=== PATIENT | male | born 1955 | race Caucasian/White ===

== ENCOUNTER 2019-01-07 01:13 | Inpatient (IN) | payer SELFPAY ==
[~2019-01-07] VITALS: Ht 165.1 cm; Wt 89.2 kg
[2019-01-07] MEDS ORDERED: ACETAMINOPHEN 325 MG TAB PO STA (01:37)
[2019-01-07] MEDS ORDERED: SODIUM CHLORIDE 0.9% 1L BAG IV* STA (01:39)
--- NOTE | 2019-01-07 01:40 | ERD ---
ER Documentation Chief Complaint Chief Complaint sob/ cough since yesterday, chills, and fever tonight HPI The patient is a 63-year-old male, presenting to the ER because of shortness of breath, cough, nasal congestion, general body pain for the last couple days, worse today. He denies neck pain, chest pain, abdominal pain, vomiting, dysuria, diarrhea. He does not smoke nor drink Medical history: Hypertension Past surgical history: Left knee arthroscopy many years ago ROS All systems reviewed and are negative except as per history of present illness. Medications Home Meds No Active Prescriptions or Reported Meds Allergies Allergies: Coded Allergies: No Known Drug Allergy (Verified Allergy, Unknown, 01/07/19) PMhx/Soc History of Surgery: Yes (KNEE SX) Anesthesia Reaction: No Hx Neurological Disorder: No Hx Respiratory Disorders: No Hx Cardiac Disorders: Yes (HTN) Hx Psychiatric Problems: No Hx Miscellaneous Medical Probl: No Hx Alcohol Use: Yes Hx Substance Use: No Hx Tobacco Use: No Smoking Status: Never smoker Physical Exam Vitals Vital Signs Date Temp Pulse Resp B/P (MAP) Pulse Ox O2 O2 Flow FiO2 Time Delivery Rate 01/07/19 100.2 97 16 118/68 95 Nasal 4.0 02:54 (85) Cannula 01/07/19 85 24 131/75 97 Nasal 4.0 02:15 (93) Cannula 01/07/19 95 3.0 02:15 01/07/19 96 22 95 Nasal 1.0 02:13 Cannula 01/07/19 Nasal 4 01:46 Cannula 01/07/19 102.8 01:45 01/07/19 Nasal 4.0 01:36 Cannula 01/07/19 102.6 108 24 189/74 94 01:16 (112) Physical Exam Const: No acute distress. Head: Atraumatic. Eyes: Normal Conjunctiva. ENT: Normal External Ears, Nose and Mouth. Neck: Full range of motion. No meningismus. Resp: Tachypneic, bilateral expiratory wheezes Cardio: Regular tachycardic Abd: Soft, non distended, normal bowel sounds, non tender. Skin: No petechiae or rashes. Back: No midline or flank tenderness. Ext: No cyanosis, or edema. Neur: Awake and alert. No focal deficit Psych: Normal Mood and Affect. Result Diagram: 3/9/19 0127 3/9/19 0127 Results 24 hrs Laboratory Tests Test 01/07/19 01:26 01/07/19 01:27 01/07/19 02:00 01/07/19 02:15 POC Venous Lactate 1.4 mmol/L White Blood Count 13.6 10^3/ul Red Blood Count 5.17 10^6/ul Hemoglobin 15.1 g/dl Hematocrit 45.1 % Mean Corpuscular 87.2 fl Volume Mean Corpuscular 29.2 pg Hemoglobin Mean Corpuscular 33.5 g/dl Hemoglobin Concent Red Cell 13.2 % Distribution Width Platelet Count 163 10^3/UL Mean Platelet 10.2 fl Volume Immature 0.600 % Granulocytes % Neutrophils % 75.5 % Lymphocytes % 15.2 % Monocytes % 6.0 % Eosinophils % 2.3 % Basophils % 0.4 % Nucleated Red Blood 0.0 /100WBC Cells % Immature 0.080 10^3/ul Granulocytes # Neutrophils # 10.3 10^3/ul Lymphocytes # 2.1 10^3/ul Monocytes # 0.8 10^3/ul Eosinophils # 0.3 10^3/ul Basophils # 0.1 10^3/ul Nucleated Red Blood 0.0 10^3/ul Cells # Prothrombin Time 12.9 Sec Prothrombin Time 1.0 Ratio INR International 0.96 Normalized Ratio Activated 28.7 Sec Partial Thromboplas t Time Sodium Level 139 mmol/L Potassium Level 3.7 mmol/L Chloride Level 100 mmol/L Carbon Dioxide 30 mmol/L Level Anion Gap 9 Blood Urea Nitrogen 22 mg/dl Creatinine 1.23 mg/dl Est Glomerular 59 mL/min Filtrat Rate mL/min Glucose Level 115 mg/dl Calcium Level 9.3 mg/dl Total Bilirubin 0.8 mg/dl Direct Bilirubin 0.00 mg/dl Indirect Bilirubin 0.8 mg/dl Aspartate Amino 35 IU/L Transf (AST/SGOT) Alanine 26 IU/L Aminotransferase (A LT/SGPT) Alkaline 115 IU/L Phosphatase Troponin I < 0.012 ng/ml Total Protein 7.7 g/dl Albumin 4.4 g/dl Globulin 3.30 g/dl Albumin/Globulin 1.33 Ratio Urine Color IMANI Urine Clarity SLIGHTLY CLOUDY Urine pH 5.0 Urine Specific 1.034 [place] Urine Ketones 1+ mg/dL Urine Nitrite NEGATIVE mg/dL Urine Bilirubin NEGATIVE mg/dL Urine Urobilinogen 1+ mg/dL Urine Leukocyte NEGATIVE Kevin/ul Esterase Urine Microscopic 2 /HPF RBC Urine Microscopic 1 /HPF WBC Urine Bacteria FEW /HPF Urine Mucus MANY /HPF Urine Hemoglobin 2+ mg/dL Urine Glucose NEGATIVE mg/dL Urine Total Protein 1+ mg/dl Bedside Urine pH 5.5 (LAB) Bedside Urine 2+ Protein (LAB) Bedside Urine Negative Glucose (UA) Bedside Urine 1+ Ketones (LAB) Bedside Urine Blood 2+ Bedside Urine Negative Nitrite (LAB) Bedside Urine Negative Leukocyte Esterase (L Test 01/07/19 03:23 POC Venous Lactate 1.2 mmol/L Current Medications Medications Dose Sig/Jackelin Start Time Status Last (Trade) Ordered Route PRN Stop Time Admin Dose Reason Admin 650 mg ONCE STAT 01/07/19 DC 01/07/19 Acetaminophen PO 01:37 01/07/19 01:45 (Tylenol 01:38 Tab) Sodium 1,980 ml BOLUS OVER 2 01/07/19 DC 01/07/19 Chloride HOURS STAT 01:39 01/07/19 01:46 (NS) IV* 01:40 5 mg ONCE STAT 01/07/19 DC 01/07/19 Levalbuterol INH 01:48 01/07/19 02:04 (Xopenex 01:49 Neb) Ipratropium 1 mg ONCE STAT 01/07/19 DC 01/07/19 [place] INH 01:48 01/07/19 02:04 (Atrovent 01:49 0.02% (Neb)) 125 mg ONCE ONCE 01/07/19 DC Methylprednis IV 04:00 01/07/19 olone Sodium 04:01 Succinate (Solu-Medrol) IV Flush 3 ml PER 01/07/19 (NS 3 ml) PROTOCOL IV 04:00 Ondansetron 4 mg Q6H PRN 01/07/19 HCl (Zofran IV 04:00 Inj) NAUSEA/VOMITI NG 650 mg Q6H PRN 01/07/19 Acetaminophen PO .PAIN 1-3 04:00 (Tylenol OR TEMP Tab) Docusate 100 mg Q12H PRN 01/07/19 Sodium PO 04:00 (Colace) .CONSTIPATION Bisacodyl 5 mg DAILY PRN 01/07/19 (Dulcolax) PO 04:00 .CONSTIPATION 40 mg DAILY@06 01/07/19 Pantoprazole PO 06:00 (Protonix Tab) 1.25 mg Q4H RESP 01/07/19 Levalbuterol THERAPY HHN 05:00 (Xopenex Neb) Oseltamivir 75 mg ONCE ONCE 01/07/19 Phosphate PO 04:30 01/07/19 (Tamiflu) 04:31 Procedures/[place] [id number] Radiology Main Line: [phone] DIAGNOSTIC IMAGING REPORT Patient: JAKOB LINCOLN : 1955 Age: 63 Sex: M MR #: [id number] DOS: 01/07/19 0137 Ordering MD: BTEH BARRERA MD Location: E/R Room/Bed: PROCEDURE: Single view chest. CLINICAL INDICATION: Sepsis TECHNIQUE: Single view of the chest was obtained COMPARISON: None FINDINGS: There is no airspace consolidation or focal infiltrate. No pleural effusion or pneumothorax. Cardiac silhouette and mediastinal contours are unremarkable. Pulmonary vasculature appears normal. Regional bones are grossly unremarkable. IMPRESSION: No evidence of active cardiopulmonary disease. RPTAT: [facility] Physician El Date Time Electronically viewed and signed by Physician El on 01/07/2019 02:16 xB/ CC: BETH BARRERA MD [id number] EKG: Read by emergency physician Rate/Rhythm: Normal Sinus Rhythm 92 beats/min QRS, ST, T-waves: No ST elevation, no T inversion, RAD, IRBBB, RVH Impression: Abnormal EKG Pulmonary CTA to rule out PE is pending MEDICAL MAKING DECISION: The patient is a 63-year-old male, presenting with acute SIRS, acute dyspnea, acute influenza, acute dehydration. He was treated with Tylenol 650 mg p.o. for fever, IV fluid for clinical dehydration, Xopenex 5 mg and Atrovent 1 mg continuous nebulizer and Solu-Medrol 125 mg IV for acute wheezing, Tamiflu 75 mg p.o. for acute influenza with good response. The differential diagnoses considered include but are not limited to influenza, viral syndrome, pneumonia, reactive airway disease, asthma, bronchospasm Departure Diagnosis: Primary Impression: Dyspnea Additional Impressions: SIRS (systemic inflammatory response syndrome) Influenza Dehydration Condition: Stable Comments I discussed the findings with the patient. I discussed the patient with the hospitalist Dr Whitehead at 3:55 am. who was made aware of the lab, the treatment, the patient condition. The patient is admitted to [facility] Disclaimer: Inadvertent spelling and grammatical errors are likely due to EHR/dictation software use and do not reflect on the overall quality of patient care. Also, please note that the electronic time recorded on this note does not necessarily reflect the actual time of the patient encounter. BETH BARRERA MD Jan 07, 2019 01:40
[2019-01-07] MEDS ORDERED: LEVALBUTEROL (NEB) 1.25 MG/0.5 ML AMP INH STA (01:48)
[2019-01-07] MEDS ORDERED: IPRATROPIUM (NEB) 0.5 MG/2.5 ML AMP INH STA (01:48)
[2019-01-07] MEDS ORDERED: ACETAMINOPHEN 325 MG TAB PO PRN (04:00)
[2019-01-07] MEDS ORDERED: NACL 0.9% 3 ML SYG IV SCH (04:00)
[2019-01-07] MEDS ORDERED: DOCUSATE SODIUM 100 MG CAP PO PRN (04:00)
[2019-01-07] MEDS ORDERED: METHYLPREDNISOLONE 125 MG INJ IV ONE (04:00)
[2019-01-07] MEDS ORDERED: BISACODYL (EC) 5 MG TAB PO PRN (04:00)
[2019-01-07] MEDS ORDERED: ONDANSETRON 4 MG INJ IV PRN (04:00)
[2019-01-07] MEDS ORDERED: OSELTAMIVIR 75 MG CAP PO ONE (04:30)
[2019-01-07] MEDS: LEVALBUTEROL (NEB) 1.25 MG/0.5 ML AMP HHN SCH ×7 (05:01→21:59)
[2019-01-07 07:14] VITALS: PULSE 82
[2019-01-07 08:10] VITALS: BP 116/69; PULSE 77; RESP 19
--- NOTE | 2019-01-07 08:24 | HP ---
Date/Time of Note Date/Time of Note DATE: 01/07/19 TIME: 07:39 Assessment/Plan VTE Prophylaxis SCD applied (from Nsg): Yes Pharmacological prophylaxis: NA/contraindicated Pharm contraindication: low risk/ambulating Lines/Catheters IV Catheter Type (from Nrsg): Saline Lock Assessment/Plan Hospital Course This is a 63, being admitted to telemetry floor for: #1 sepsis: Secondary to influenza. Tamiflu. Nebs, steroids: Cultures pending #2 influenza: Patient does have wheezing on exam. Nebulizers, Tamiflu, steroids.droplet precautions #3 elevated d-dimer: CT of the chest negative for central pulmonary embolism. We will get a venous Doppler ultrasound to further assess. I do feel his symptoms are more so related to his influenza. #4 hypertension: Continue patient's home medications #5 obesity: We will check hemoglobin A 1C, lipid panel, TSH #6 DVT GI prophylaxis: SCDs, GI prophylaxis indicated Further treatment strategy will be implemented as per the clinical course Result Diagram: 01/07/19 0127 01/07/19 0127 Results 24hrs Laboratory Tests Test 01/07/19 01:26 01/07/19 01:27 01/07/19 02:00 01/07/19 02:15 POC Venous Lactate 1.4 White Blood Count 13.6 H Red Blood Count 5.17 Hemoglobin 15.1 Hematocrit 45.1 Mean Corpuscular 87.2 Volume Mean Corpuscular 29.2 Hemoglobin Mean Corpuscular 33.5 Hemoglobin Concent Red Cell 13.2 Distribution Width Platelet Count 163 Mean Platelet 10.2 Volume Immature 0.600 H Granulocytes % Neutrophils % 75.5 Lymphocytes % 15.2 Monocytes % 6.0 Eosinophils % 2.3 Basophils % 0.4 Nucleated Red 0.0 Blood Cells % Immature 0.080 H Granulocytes # Neutrophils # 10.3 H Lymphocytes # 2.1 Monocytes # 0.8 Eosinophils # 0.3 Basophils # 0.1 Nucleated Red 0.0 Blood Cells # Prothrombin Time 12.9 Prothrombin Time 1.0 Ratio INR International 0.96 Normalized Ratio Activated 28.[address] Time D-Dimer 668.58 H D-Dimer Comment Sodium Level 139 Potassium Level 3.7 Chloride Level 100 Carbon Dioxide 30 Level Anion Gap 9 Blood Urea 22 H Nitrogen Creatinine 1.23 Est Glomerular 59 L Filtrat Rate mL/min Glucose Level 115 Calcium Level 9.3 Total Bilirubin 0.8 Direct Bilirubin 0.00 Indirect Bilirubin 0.8 Aspartate Amino 35 Transf (AST/SGOT) Alanine 26 Aminotransferase ( ALT/SGPT) Alkaline 115 Phosphatase Troponin I < 0.012 Total Protein 7.7 Albumin 4.4 Globulin 3.30 H Albumin/Globulin 1.33 Ratio Urine Color IMANI Urine Clarity SLIGHTLY CLOUDY A Urine pH 5.0 Urine Specific 1.034 H [place] Urine Ketones 1+ H Urine Nitrite NEGATIVE Urine Bilirubin NEGATIVE Urine Urobilinogen 1+ H Urine Leukocyte NEGATIVE Esterase Urine Microscopic 2 RBC Urine Microscopic 1 WBC Urine Bacteria FEW A Urine Mucus MANY A Urine Hemoglobin 2+ H Urine Glucose NEGATIVE Urine Total 1+ H Protein Bedside Urine pH 5.5 (LAB) Bedside Urine 2+ H Protein (LAB) Bedside Urine Negative Glucose (UA) Bedside Urine 1+ H Ketones (LAB) Bedside Urine 2+ H Blood Bedside Urine Negative Nitrite (LAB) Bedside Urine Negative Leukocyte Esterase (L Test 01/07/19 03:23 01/07/19 04:27 POC Venous Lactate 1.2 Lactic Acid Level 1.3 HPI/ROS Admit Date/Time Admit Date/Time Hx of Present Illness Chief complaint: Cough shortness of breath The patient is a 63-year-old male, presenting to the ER because of shortness of breath, cough, nasal congestion, general body pain for the last 2 days, worse today. She does report fevers at home. Does report sick contacts. He denies neck pain, chest pain, abdominal pain, vomiting, dysuria, diarrhea. He does not smoke nor drink Allergies: NKDA medications: See DEC CELE Const: As per HPI Eyes : No pain discharge or redness or change in visual acuity ENT: No pain, sore throat, congestion, congestion, dysphagia or discharge Respiratory: As per HPI Cardiovascular: No chest pain, palpitation, PND, or edema GI : no change in appetite, abdominal pain, nausea, vomiting, diarrhea, constipation, or change in the color his stool Genitourinary: No dysuria, hematuria, flank pain , discharge or CVA tenderness Musculoskeletal: No joint pain, back pain, neck pain, restricted range of motion in neck or joints Skin: No rash, bruising or hives Neuro: No headache, dizziness, syncope, seizure, focal weakness Endocrine: No polyuria, polydipsia, temperature intolerance Psych: No hallucination, depression, anxiety or suicidal ideation PMH/Family/Social Past Medical History Hypertension Medications Current Medications IV Flush (NS 3 ml) 3 ml PER PROTOCOL IV ; Start 01/07/19 at 04:00 Ondansetron HCl (Zofran Inj) 4 mg Q6H PRN IV NAUSEA/VOMITING; Start 01/07/19 at 04:00 Acetaminophen (Tylenol Tab) 650 mg Q6H PRN PO .PAIN 1-3 OR TEMP; Start 01/07/19 at 04:00 Docusate Sodium (Colace) 100 mg Q12H PRN PO .CONSTIPATION; Start 01/07/19 at 04:00 Bisacodyl (Dulcolax) 5 mg DAILY PRN PO .CONSTIPATION; Start 01/07/19 at 04:00 Pantoprazole (Protonix Tab) 40 mg DAILY@06 PO ; Start 01/07/19 at 06:00 Levalbuterol (Xopenex Neb) 1.25 mg Q4H RESP THERAPY HHN Last administered on at 05:01; Admin Dose 1.25 MG; Start 01/07/19 at 05:00 Oseltamivir Phosphate (Tamiflu) 75 mg BID PO ; Start 01/07/19 at 18:00; Stop 01/12/19 at 17:59 Coded Allergies: No Known Drug Allergy (Verified Allergy, Unknown, 01/07/19) Past Surgical History Left knee arthroscopy many years ago Family History Significant Family History: no pertinent family hx Social History Alcohol Use: none Smoking Status: Never smoker Drug Use: none Exam/Review of Systems Vital Signs Vitals Vital Signs Date Temp Pulse Resp B/P (MAP) Pulse Ox O2 O2 Flow FiO2 Time Delivery Rate 01/07/19 77 16 132/80 97 Nasal 2.0 06:13 (97) Cannula 01/07/19 100.2 02:54 Exam Exam General: Patient currently sitting upright in bed in no acute distress HEENT: Atraumatic, normocephalic. The pupils are equal, round and reactive. Extraocular motor are intact Neck: Supple with full range of motion. No rigidity or meningismus Chest: Nontender Lungs: Bilateral expiratory wheezing on exam, coarse breath sounds bilaterally Heart: Normal S1-S2, Regular rhythm and rate. Abdomen: Soft , nontender, nondistended , bowel sounds are present. No guarding no rebound tenderness , No masses or organomegaly. No costovertebral temporal angle mass Extremities: Normal to inspection, no edema no cyanosis Neurologic: Normal mental status, speech normal, cranial nerves II through XII are intact, motor and sensory are intact, Additional Comments PROCEDURE: Single view chest. CLINICAL INDICATION: Sepsis TECHNIQUE: Single view of the chest was obtained COMPARISON: None FINDINGS: There is no airspace consolidation or focal infiltrate. No pleural effusion or pneumothorax. Cardiac silhouette and mediastinal contours are unremarkable. Pulmonary vasculature appears normal. Regional bones are grossly unremarkable. IMPRESSION: No evidence of active cardiopulmonary disease. RPTAT: [facility] Physician El Date Time Electronically viewed and signed by Physician El on 01/07/2019 02:16 xB/ CC: BETH BARRERA MD [id number] PROCEDURE: CTA Chest and pulmonary angiogram. CLINICAL INDICATION: Shortness of breath TECHNIQUE: CT scan of the chest and CT pulmonary angiogram was performed on a multidetector high-resolution CT scanner. High-resolution thin slice coronal and sagittal imaging was obtained from the axial source images. 3-D MIP post processing was performed. The patient was examined following the uncomplicated intravenous administration of 100 cc of Visipaque 320. The images were reviewed on a PACS workstation. The total exam CTDI equals 49.29, 18.83 mGy, and the total exam DLP equals 703.85 mGy-cm. DICOM images are available. One or more of the following dose reduction techniques were used: automated exposure control, adjustment of the mA and/or kV according to patient size, or use of iterative reconstruction technique. COMPARISON: DR MARTINEZ 01/07/2019 FINDINGS: CT chest: Motion artifact is noted. The lung volumes are low with lingular and left basilar linear atelectasis. No focal consolidation, pleural effusion or pneumothorax is seen. The central tracheobronchial tree is clear. The mediastinum is unremarkable without evidence for mass or lymphadenopathy. The vascular structures of the mediastinum are normal in course and caliber. The heart size is normal without pericardial thickening or effusion. The axillary, subpectoral, and supraclavicular regions are unremarkable. The surrounding chest wall is normal. Imaging obtained through the upper abdomen demonstrates hypodense liver lesions, likely cysts. The adrenal glands are symmetrically normal. The osseous structures are intact. Large anterior osteophytes are seen in the mid lower thoracic spine. CT pulmonary angiogram: The exam is limited due to suboptimal bolus timing and motion artifact. The pulmonary arteries are normal in caliber and morphology. No filling defects are identified in the central pulmonary arteries. There is no evidence for pulmonary arterial hypertension. IMPRESSION: 1. Limited pulmonary angiogram due to suboptimal bolus timing and motion. No large central pulmonary embolus is identified. Ventilation-perfusion scan is recommended if there is high clinical suspicion for PE. 2. No acute infiltrate, mass or lymphadenopathy. 3. Hypodense liver lesions, likely cysts, recommend correlation with ultrasound. [facility] Physician Naomi Date Time Electronically viewed and signed by Physician Naomi on 01/07/2019 04:46 CS/ CC: BETH BARRERA MD [id number] TYSHAWN MARCIAL Jan 07, 2019 07:49
[2019-01-07 08:45] VITALS: Ht 165.1 cm; Wt 89.2 kg
[2019-01-07] MEDS: predniSONE 20 MG TAB PO SCH (09:15)
[2019-01-07] MEDS: PANTOPRAZOLE (EC) 40 MG TAB PO SCH (09:16)
[2019-01-07] MEDS ORDERED: LISI-471 PO (09:21)
--- NOTE | 2019-01-07 10:47 | PN ---
Date/Time of Note Date/Time of Note DATE: 01/07/19 TIME: 10:44 Assessment/Plan VTE Prophylaxis SCD applied (from Nsg): Yes Pharmacological prophylaxis: NA/contraindicated Pharm contraindication: low risk/ambulating Lines/Catheters IV Catheter Type (from Nrsg): Saline Lock Assessment/Plan Hospital Course SUBJECTIVE: Continues to have dyspnea. OBJECTIVE: Physical Exam General: Obese, 63 year-old male lying in bed in no apparent distress. HEENT: Normocephalic, atraumatic. Eyes: Anicteric sclerae, conjunctivae clear. ENT: Nasal septum midline, oral mucosa moist. Neck supple, no JVD noticed. Respiratory: Bilaterally diminished breath sounds. No use of accessory muscles of respiration. Bilateral expiratory wheezing. Cardiovascular: S1, S2 heard. Regular rate and rhythm. Abdomen: Soft, nontender, and nondistended. Bowel sounds positive in all 4 quadrants. Genitourinary: Deferred. Extremities: No cyanosis, no clubbing, no edema. Peripheral pulses palpable. Neurologic: Cranial nerves II through XII grossly intact. The patient is awake, alert, and oriented. Skin: Normal skin turgor. No skin rashes. Labs & Vitals per chart ASSESSMENT & PLAN 63-year-old male with comorbidities including obesity and hypertension who came to the emergency room with chief complaint of cough, shortness of breath, nasal congestion, and generalized pain for the past 2 days. Patient was noticed to have leukocytosis, and febrile illness along with tachycardia in the emergency room with positive influenza A. The patient was admitted to inpatient status for further treatment and evaluation. 1. Sepsis with leukocytosis, tachycardia, and febrile illness, present on adm ission secondary to underlying influenza A. -Continue neuraminidase inhibitors. -Droplet precautions. 2. Bronchitis secondary to acute influenza A. -Continue inhaled bronchodilators. -Continue tapering dose of steroids. 3. Essential hypertension. -Continue antihypertensives. 4. Multiple simple liver cysts. -Incidental finding. -Monitor. 5. Obesity. -BMI more than 32 kg/m. -Weight reduction advised. 6. -Fluids, electrolytes, and nutrition. -Regular diet. 7. DVT prophylaxis. -Bilateral SCDs. 8. Plan. -Continue Tamiflu. -Continue bronchodilators. -Await clinical improvement. The patient was seen in collaboration with Dr. Ellis. Result Diagram: 01/07/19 0127 01/07/19 0127 Results 24hrs Laboratory Tests Test 01/07/19 01:26 01/07/19 01:27 01/07/19 02:00 01/07/19 02:15 POC Venous Lactate 1.4 White Blood Count 13.6 H Red Blood Count 5.17 Hemoglobin 15.1 Hematocrit 45.1 Mean Corpuscular 87.2 Volume Mean Corpuscular 29.2 Hemoglobin Mean Corpuscular 33.5 Hemoglobin Concent Red Cell 13.2 Distribution Width Platelet Count 163 Mean Platelet 10.2 Volume Immature 0.600 H Granulocytes % Neutrophils % 75.5 Lymphocytes % 15.2 Monocytes % 6.0 Eosinophils % 2.3 Basophils % 0.4 Nucleated Red 0.0 Blood Cells % Immature 0.080 H Granulocytes # Neutrophils # 10.3 H Lymphocytes # 2.1 Monocytes # 0.8 Eosinophils # 0.3 Basophils # 0.1 Nucleated Red 0.0 Blood Cells # Prothrombin Time 12.9 Prothrombin Time 1.0 Ratio INR International 0.96 Normalized Ratio Activated 28.[address] Time D-Dimer 668.58 H D-Dimer Comment Sodium Level 139 Potassium Level 3.7 Chloride Level 100 Carbon Dioxide 30 Level Anion Gap 9 Blood Urea 22 H Nitrogen Creatinine 1.23 Est Glomerular 59 L Filtrat Rate mL/min Glucose Level 115 Calcium Level 9.3 Total Bilirubin 0.8 Direct Bilirubin 0.00 Indirect Bilirubin 0.8 Aspartate Amino 35 Transf (AST/SGOT) Alanine 26 Aminotransferase ( ALT/SGPT) Alkaline 115 Phosphatase Troponin I < 0.012 Total Protein 7.7 Albumin 4.4 Globulin 3.30 H Albumin/Globulin 1.33 Ratio Urine Color IMANI Urine Clarity SLIGHTLY CLOUDY A Urine pH 5.0 Urine Specific 1.034 H [place] Urine Ketones 1+ H Urine Nitrite NEGATIVE Urine Bilirubin NEGATIVE Urine Urobilinogen 1+ H Urine Leukocyte NEGATIVE Esterase Urine Microscopic 2 RBC Urine Microscopic 1 WBC Urine Bacteria FEW A Urine Mucus MANY A Urine Hemoglobin 2+ H Urine Glucose NEGATIVE Urine Total 1+ H Protein Bedside Urine pH 5.5 (LAB) Bedside Urine 2+ H Protein (LAB) Bedside Urine Negative Glucose (UA) Bedside Urine 1+ H Ketones (LAB) Bedside Urine 2+ H Blood Bedside Urine Negative Nitrite (LAB) Bedside Urine Negative Leukocyte Esterase (L Test 01/07/19 03:23 01/07/19 04:27 POC Venous Lactate 1.2 Lactic Acid Level 1.3 Exam/Review of Systems Exam Vitals Vital Signs Date Temp Pulse Resp B/P (MAP) Pulse Ox O2 O2 Flow FiO2 Time Delivery Rate 01/07/19 95 21 10:22 01/07/19 77 16 10:21 01/07/19 Nasal 2.0 09:01 Cannula 01/07/19 99.2 116/69 08:10 (85) Results Results 24hrs Laboratory Tests Test 01/07/19 01:26 01/07/19 01:27 01/07/19 02:00 01/07/19 02:15 POC Venous Lactate 1.4 White Blood Count 13.6 H Red Blood Count 5.17 Hemoglobin 15.1 Hematocrit 45.1 Mean Corpuscular 87.2 Volume Mean Corpuscular 29.2 Hemoglobin Mean Corpuscular 33.5 Hemoglobin Concent Red Cell 13.2 Distribution Width Platelet Count 163 Mean Platelet 10.2 Volume Immature 0.600 H Granulocytes % Neutrophils % 75.5 Lymphocytes % 15.2 Monocytes % 6.0 Eosinophils % 2.3 Basophils % 0.4 Nucleated Red 0.0 Blood Cells % Immature 0.080 H Granulocytes # Neutrophils # 10.3 H Lymphocytes # 2.1 Monocytes # 0.8 Eosinophils # 0.3 Basophils # 0.1 Nucleated Red 0.0 Blood Cells # Prothrombin Time 12.9 Prothrombin Time 1.0 Ratio INR International 0.96 Normalized Ratio Activated 28.[address] Time D-Dimer 668.58 H D-Dimer Comment Sodium Level 139 Potassium Level 3.7 Chloride Level 100 Carbon Dioxide 30 Level Anion Gap 9 Blood Urea 22 H Nitrogen Creatinine 1.23 Est Glomerular 59 L Filtrat Rate mL/min Glucose Level 115 Calcium Level 9.3 Total Bilirubin 0.8 Direct Bilirubin 0.00 Indirect Bilirubin 0.8 Aspartate Amino 35 Transf (AST/SGOT) Alanine 26 Aminotransferase ( ALT/SGPT) Alkaline 115 Phosphatase Troponin I < 0.012 Total Protein 7.7 Albumin 4.4 Globulin 3.30 H Albumin/Globulin 1.33 Ratio Urine Color IMANI Urine Clarity SLIGHTLY CLOUDY A Urine pH 5.0 Urine Specific 1.034 H [place] Urine Ketones 1+ H Urine Nitrite NEGATIVE Urine Bilirubin NEGATIVE Urine Urobilinogen 1+ H Urine Leukocyte NEGATIVE Esterase Urine Microscopic 2 RBC Urine Microscopic 1 WBC Urine Bacteria FEW A Urine Mucus MANY A Urine Hemoglobin 2+ H Urine Glucose NEGATIVE Urine Total 1+ H Protein Bedside Urine pH 5.5 (LAB) Bedside Urine 2+ H Protein (LAB) Bedside Urine Negative Glucose (UA) Bedside Urine 1+ H Ketones (LAB) Bedside Urine 2+ H Blood Bedside Urine Negative Nitrite (LAB) Bedside Urine Negative Leukocyte Esterase (L Test 01/07/19 03:23 01/07/19 04:27 POC Venous Lactate 1.2 Lactic Acid Level 1.3 Medications Medication Current Medications IV Flush (NS 3 ml) 3 ml PER PROTOCOL IV ; Start 01/07/19 at 04:00 Ondansetron HCl (Zofran Inj) 4 mg Q6H PRN IV NAUSEA/VOMITING; Start 01/07/19 at 04:00 Acetaminophen (Tylenol Tab) 650 mg Q6H PRN PO .PAIN 1-3 OR TEMP; Start 01/07/19 at 04:00 Docusate Sodium (Colace) 100 mg Q12H PRN PO .CONSTIPATION; Start 01/07/19 at 04:00 Bisacodyl (Dulcolax) 5 mg DAILY PRN PO .CONSTIPATION; Start 01/07/19 at 04:00 Pantoprazole (Protonix Tab) 40 mg DAILY@06 PO Last administered on 01/07/19at 09:16; Admin Dose 40 MG; Start 01/07/19 at 06:00 Levalbuterol (Xopenex Neb) 1.25 mg Q4H RESP THERAPY HHN Last administered on 01/07/19at 10:14; Admin Dose 1.25 MG; Start 01/07/19 at 05:00 Oseltamivir Phosphate (Tamiflu) 75 mg BID PO ; Start 01/07/19 at 18:00; Stop 01/12/19 at 17:59 Levalbuterol (Xopenex Neb) 1.25 mg Q4H RESP THERAPY HHN ; Start 01/07/19 at 09:00 Prednisone (Prednisone) 40 mg DAILY PO Last administered on 01/07/19at 09:15; Admin Dose 40 MG; Start 01/07/19 at 09:00; Stop 01/12/19 at 08:59 Influenza Virus Vaccine Quadrival (Fluzone) 0.5 ml ONCE ONCE IM* ; Start 01/08/19 at 10:00; Stop 01/08/19 at 10:01 Lisinopril (Zestril) 20 mg DAILY PO ; Start 01/07/19 at 10:30 WEI BOOTH NP Jan 07, 2019 10:47
[2019-01-07] MEDS: LISINOPRIL 20 MG TAB PO SCH (11:00)
[2019-01-07 12:35] VITALS: BP 133/74; PULSE 86
[2019-01-07 14:00] VITALS: BP 100/59; PULSE 80; RESP 19
[2019-01-07] MEDS: OSELTAMIVIR 75 MG CAP PO SCH ×2 (17:16→21:15)
[2019-01-07] MEDS ORDERED: OSELTAMIVIR 75 MG CAP ONE (19:50)
[2019-01-07 20:00] VITALS: BP 131/70; PULSE 96; RESP 20
[2019-01-08] MEDS: LEVALBUTEROL (NEB) 1.25 MG/0.5 ML AMP HHN SCH ×5 (00:40→17:00)
[2019-01-08 02:00] VITALS: BP 125/61; PULSE 80; RESP 20
[2019-01-08] MEDS: PANTOPRAZOLE (EC) 40 MG TAB PO SCH (05:12)
[2019-01-08 07:53] VITALS: BP 126/60; PULSE 72; RESP 18
[2019-01-08] MEDS: OSELTAMIVIR 75 MG CAP PO SCH ×2 (09:17→18:38)
[2019-01-08] MEDS: LISINOPRIL 20 MG TAB PO SCH (09:17)
[2019-01-08] MEDS: predniSONE 20 MG TAB PO SCH (09:18)
[2019-01-08] MEDS ORDERED: INFLUENZA VIRUS VACCINE 0.5 ML (DISPENSING) IM* ONE (10:00)
[2019-01-08 13:47] VITALS: BP 127/56; PULSE 74; RESP 16
[2019-01-08] MEDS ORDERED: MED4DP PO (17:46)
[2019-01-08] MEDS ORDERED: OSEL75CA16 PO (17:46)
[2019-01-08] MEDS ORDERED: Work Note (17:47)
--- NOTE | 2019-01-08 17:51 | PDOCDIS ---
Discharge Instructions CONDITION [id number] Patient Condition: [id number] Stable OTHER ORDERS: Other Orders: 1. Complete the course of antibiotics. 2. Take a low carbohydrate diet 3. Resume activities as tolerated 4. Follow-up with your primary care physician 1 week. 5. Please go to the nearest emergency room if you have any shortness of breath, worsening cough, persistent fevers, or any other unusual signs/symptoms. WEI BOOTH NP Jan 08, 2019 17:51
--- NOTE | 2019-01-08 18:25 | DS ---
Date/Time of Note Date/Time of Note DATE: 01/08/19 TIME: 18:24 Discharge Summary Admission/Discharge Info Admit Date/Time Jan 07, 2019 at 03:55 Discharge Date/Time Discharge Diagnosis 1. Sepsis with leukocytosis, tachycardia, and febrile illness, present on adm ission secondary to underlying influenza A. 2. Bronchitis secondary to acute influenza A. 3. Essential hypertension. 4. Multiple simple liver cysts. Incidental finding. 5. Obesity. BMI more than 32 kg/m. 6. Fatty liver. Patient Condition: Stable Procedures CTA Chest IMPRESSION: 1. Limited pulmonary angiogram due to suboptimal bolus timing and motion. No large central pulmonary embolus is identified. Ventilation-perfusion scan is recommended if there is high clinical suspicion for PE. 2. No acute infiltrate, mass or lymphadenopathy. 3. Hypodense liver lesions, likely cysts, recommend correlation with ultrasound. Liver US IMPRESSION: Fatty liver. Multiple simple liver cysts. Hx of Present Illness This is a 63-year-old male with comorbidities including obesity and hypertension who came to the emergency room with chief complaint of cough, shortness of breath, nasal congestion, and generalized pain for the past 2 days. Patient was noticed to have leukocytosis, and febrile illness along with tachycardia in the emergency room with positive influenza A. The patient was admitted to inpatient status for further treatment and evaluation. Hospital Course The patient had evidence of underlying sepsis with leukocytosis, tachycardia and febrile illness, present on admission. Patient's influenza A screen was positive. Therefore, the patient was started on Tamiflu. The patient was maintained on droplet precautions. The patient had evidence of underlying bronchitis secondary to acute influenza A. The patient was maintained on inhaled bronchodilators with improvement in the patient's respiratory symptoms. The patient was also started on tapering dose of steroids. The patient's condition responded well to the treatment strategy. The patient's chronic problems include essential hypertension. The patient was maintained on antihypertensives for the same. The patient underwent a CT angiogram of the chest that was negative for any central pulmonary embolism. However, this showed some simple liver cysts. This was further evaluated by a liver ultrasound. Her ultrasound revealed simple liver cyst. This is an incidental finding and there was no indication for any further evaluation of this. The patient did not have any complaints of abdominal pain. The patient's LFTs were within normal limits. The patient was noticed to be obese with a BMI of more than 32 kg/m. The patient was advised on weight reduction. The patient's hemoglobin A1c was within normal limits. The patient's fasting lipid panel was satisfactory. The patient had a stable hospital course. The patient is stable to be discharged home to complete the course of antiviral medication. Discharge Instructions 1. Complete the course of antivirals. 2. Take a low carbohydrate diet 3. Resume activities as tolerated 4. Follow-up with your primary care physician 1 week. 5. Please go to the nearest emergency room if you have any shortness of breath, worsening cough, persistent fevers, or any other unusual signs/symptoms. The patient verbalized understanding of his discharge instructions. The patient was seen in collaboration with Dr. Ellis. [facility] Active Scripts [Work Note] No Conflict Check This is to certify that the patient was admitted to [facility] from 01/07/2019 to 01/08/2019. He can return back to work on 01/10/2019 with no restrictions. Prov:WEI BOOTH NP 01/08/19 Methylprednisolone* (Medrol* DOSE PACK) 4 Mg/Dose-Pack Tab.ds.pk, 4 MG PO . DIRECTED, #1 PACKET Prov:WEI BOOTH NP 01/08/19 Oseltamivir Phosphate (Oseltamivir Phosphate) 75 Mg Capsule, 75 MG PO BID for 3 Days, #6 CAP Patient received 2 days of Tamiflu already. Prov:WEI BOOTH NP 01/08/19 Reported Medications Lisinopril* (Lisinopril*) 20 Mg Tablet, 20 MG PO DAILY, #30 TAB 01/07/19 Primary Care Provider Not On Staff Doctor Time spent on discharge: > 30 minutes Pending Labs RUN DATE: 01/07/19 [facility] PAGE 1 RUN TIME: [id number] [place] [address] Nicola Earl M.D. Full Roll Inspector Virginia Xiong M.D. Co-Full Roll Inspector JT#: [id number] Name: JAKOB LINCOLN Age/Sex: 63/M Attend Dr: BETH BARRERA MD Acct: [id number] MR# : [id number] : 1955 Location: E/R Admit: 01/07/19 Specimen: [id number] Status: Complete Gianna: 01/07/19 Rcvd: 01/07/19 Source: TIN Sp Descrip: Procedure Result - Microbiology INFLUENZA A & B BY EIA Final INFLU A&B BY EIA INFLUENZA A POSITIVE (Ref Range Neg) INFLUENZA B NEGATIVE (Ref Range Neg) Phoned to Alicia SNYDER ............................................................................................ Flags: Critical Hi = *H Critical Lo = *L Microbiology Abnormal = * Abnormal Hi = H Abnormal Lo = L Blood Bank Abnormal = * Susceptability Flags: S = Sensitive R = Resistant I = Intermediate END OF REPORT Laboratory Tests Test 01/08/19 04:43 White Blood Count 15.1 10^3/ul (4.8-10.8) Red Blood Count 4.77 10^6/ul (4.70-6.10) Hemoglobin 13.7 g/dl (14.0-18.0) Hematocrit 41.3 % (42.0-52.0) Mean Corpuscular Volume 86.6 fl (82.0-101.0) Mean Corpuscular Hemoglobin 28.7 pg (29.0-33.0) Mean Corpuscular Hemoglobin Concent 33.2 g/dl (32.0-37.0) Red Cell Distribution Width 13.4 % (11.5-14.5) Platelet Count 165 10^3/UL (140-415) Mean Platelet Volume 10.4 fl (7.4-10.4) Immature Granulocytes % 0.600 % (0.001-0.429) Neutrophils % 81.7 % (39.0-77.0) Lymphocytes % 8.3 % (15.0-51.0) Monocytes % 8.9 % (0.0-11.0) Eosinophils % 0.3 % (0.0-7.0) Basophils % 0.2 % (0.0-2.0) Nucleated Red Blood Cells % 0.0 /100WBC (0.0-0.0) Immature Granulocytes # 0.090 10^3/ul (0.0-0.031) Neutrophils # 12.3 10^3/ul (1.6-7.5) Lymphocytes # 1.3 10^3/ul (0.8-2.9) Monocytes # 1.3 10^3/ul (0.3-0.9) Eosinophils # 0.1 10^3/ul (0.0-0.5) Basophils # 0.0 10^3/ul (0.0-0.1) Nucleated Red Blood Cells # 0.0 10^3/ul (0.0-0.0) Sodium Level 140 mmol/L (135-144) Potassium Level 3.6 mmol/L (3.5-5.1) Chloride Level 105 mmol/L (97-110) Carbon Dioxide Level 26 mmol/L (21-31) Anion Gap 9 (5-13) Blood Urea Nitrogen 15 mg/dl (7-20) Creatinine 0.84 mg/dl (0.61-1.24) Est Glomerular Filtrat Rate mL/min > 60 mL/min (>60) Glucose Level 114 mg/dl (70-220) Hemoglobin A1c 5.6 % (0-5.9) Calcium Level 9.0 mg/dl (8.4-10.2) Magnesium Level 2.3 mg/dl (1.7-2.5) Total Bilirubin 0.5 mg/dl (0.2-1.3) Direct Bilirubin 0.00 mg/dl (0.00-0.20) Indirect Bilirubin 0.5 mg/dl (0-1.1) Aspartate Amino Transf (AST/SGOT) 36 IU/L (15-46) Alanine Aminotransferase (ALT/SGPT) 28 IU/L (13-69) Alkaline Phosphatase 83 IU/L (42-121) Total Protein 6.7 g/dl (6.1-8.1) Albumin 3.7 g/dl (3.3-4.9) Globulin 3.00 g/dl (1.3-3.2) Albumin/Globulin Ratio 1.23 Triglycerides Level 86 mg/dl (0-149) Cholesterol Level 193 mg/dl (100-200) LDL Cholesterol, Calculated 123 mg/dl HDL Cholesterol 53 mg/dl (30-78) Cholesterol/HDL Ratio 3.6 RATIO Thyroid Stimulating Hormone (TSH) 3.020 MIU/L (0.465-4.680) WEI BOOTH NP Jan 08, 2019 18:25
== END 2019-01-08 18:59 | disposition home or self-care (01) | DRG 872 ==
LOC: E/R 01:13 → TEL 03:55 → E/R 09:00 → PP2 11:20
PROVIDERS: ADMIT Family Medicine; ATTEND Family Medicine
DX: A41.89 Other specified sepsis (principal); K76.0 Fatty (change of) liver, not elsewhere classified; E66.9 Obesity, unspecified; K76.89 Other specified diseases of liver; J10.1 Influenza due to other identified influenza virus with other respiratory manifestations; J20.8 Acute bronchitis due to other specified organisms; E86.0 Dehydration; I10 Essential (primary) hypertension; Z68.32 Body mass index [BMI] 32.0-32.9, adult; Z71.3 Dietary counseling and surveillance
CPT/HCPCS: 36415; 71045; 71275; 76705; 80053; 80061; 81001; 81003; 83036; 83605; 83735; 84443; 84484; 85025; 85378; 85610; 85730; 87040; 87086; 87400; 90686; 93005; 93970; 94640; 94644; 94664; J2930; J7030; J7512